=== PATIENT | male | born 1955 | race Hispanic/Latino ===

== ENCOUNTER 2021-02-21 09:52 | Emergency (ER) | payer MEDICARE ==
[2021-02-21] MEDS ORDERED: hydrALAZINE 25 MG TAB PO ONE (10:07)
--- NOTE | 2021-02-21 10:32 | Emergency Department Report ---
ED Shortness of Breath HPI - General Chief Complaint: Dyspnea/Respdistress Stated Complaint: ELOINA Time Seen by Provider: 02/21/21 10:01 Source: patient Mode of arrival: Ambulatory Limitations: No Limitations - History of Present Illness Initial Comments: Patient is a 66-year-old male presents emergency with complaints of shortness of breath that worsened over the last couple days. He states he has had increasing shortness of breath over couple weeks. He has associated orthopnea, exertional shortness of breath, paroxysmal nocturnal dyspnea. Patient states he is also had a cough with yellow mucus production. He denies any chest pain, fever, vomiting, diarrhea, leg swelling, hemoptysis, pleuritic pain. He has a past medical history of nonischemic cardiomyopathy with ejection fraction of 25%,chronic kidney disease and hypertension. Patient states that he ran out of his medications that he was given during his last emergency room visit. He denies any allergies to medications. He is a former smoker. pt underwent cardiac catheterization nonobstructive coronaries, severe cardiomyopathy with EF of 25%. - Related Data Previous Rx's Medication Instructions Recorded Last Taken Type Aspirin [Aspirin BABY CHEW TAB] 81 mg PO QDAY #30 tab.chew 05/26/20 Unknown Rx Metoprolol [Lopressor TAB] 12.5 mg PO BID #60 tablet 08/07/20 Unknown Rx Furosemide [Lasix TAB] 20 mg PO QDAY #30 tablet 02/21/21 Unknown Rx lisinopriL [Zestril TAB] 5 mg PO QDAY #30 tablet 02/21/21 Unknown Rx Allergies Allergy/AdvReac Type Severity Reaction Status Date / Time No Known Allergies Allergy Unverified 08/04/20 22:41 ED Review of Systems ROS: Stated complaint: ELOINA Other details as noted in HPI Comment: All other systems reviewed and negative ED Past Medical Hx - Past Medical History Previous Medical History?: Yes Hx Hypertension: Yes Hx Arthritis: Yes Hx HIV: No - Surgical History Past Surgical History?: No - Social History Smoking Status: Former Smoker - Medications Home Medications: Home Medications Medication Instructions Recorded Confirmed Last Taken Type Aspirin [Aspirin BABY CHEW TAB] 81 mg PO QDAY #30 tab.chew 05/26/20 02/21/21 Unknown Rx Metoprolol [Lopressor TAB] 12.5 mg PO BID #60 tablet 08/07/20 02/21/21 Unknown Rx Furosemide [Lasix TAB] 20 mg PO QDAY #30 tablet 02/21/21 Unknown Rx lisinopriL [Zestril TAB] 5 mg PO QDAY #30 tablet 02/21/21 Unknown Rx ED Physical Exam - General Limitations: No Limitations General appearance: alert, in no apparent distress - Head Head exam: Present: atraumatic, normocephalic - Eye Eye exam: Present: normal appearance - ENT ENT exam: Present: mucous membranes moist - Respiratory Respiratory exam: Present: rales, decreased breath sounds. Absent: respiratory distress, wheezes, stridor, chest wall tenderness, accessory muscle use, prolonged expiratory - Cardiovascular Cardiovascular Exam: Present: regular rate, normal rhythm, normal heart sounds. Absent: systolic murmur, diastolic murmur, rubs, gallop - Extremities Exam Extremities exam: Absent: pedal edema, calf tenderness - Neurological Exam Neurological exam: Present: alert, oriented X3 - Psychiatric Psychiatric exam: Present: normal affect, normal mood - Skin Skin exam: Present: warm, dry ED Course Vital Signs 02/21/21 02/21/21 02/21/21 09:57 10:24 10:56 Temperature 97.7 F Pulse Rate 55 L Respiratory 18 22 31 H Rate Blood Pressure 185/110 O2 Sat by Pulse 95 97 Oximetry 02/21/21 02/21/21 02/21/21 11:00 11:16 11:30 Temperature Pulse Rate 79 66 75 Respiratory 34 H 22 26 H Rate Blood Pressure 178/115 176/105 183/145 O2 Sat by Pulse 94 95 95 Oximetry 02/21/21 02/21/21 02/21/21 11:46 12:00 12:16 Temperature Pulse Rate 84 81 68 Respiratory 27 H 21 22 Rate Blood Pressure 178/110 172/111 176/114 O2 Sat by Pulse 94 89 89 Oximetry 02/21/21 02/21/21 02/21/21 12:30 12:46 13:00 Temperature Pulse Rate 64 62 68 Respiratory 27 H 14 18 Rate Blood Pressure 160/115 163/109 166/118 O2 Sat by Pulse 87 91 91 Oximetry 02/21/21 02/21/21 02/21/21 13:16 13:30 13:46 Temperature Pulse Rate 80 Respiratory 19 Rate Blood Pressure 175/125 171/104 163/109 O2 Sat by Pulse 95 92 94 Oximetry 02/21/21 02/21/21 02/21/21 14:00 14:16 14:23 Temperature Pulse Rate Respiratory Rate Blood Pressure 171/104 159/103 O2 Sat by Pulse 97 83 L 97 Oximetry ED Medical Decision Making - Lab Data Result diagrams: 02/21/21 10:50 02/21/21 10:50 Lab Results 02/21/21 02/21/21 02/21/21 Range/Units 10:50 10:50 10:50 WBC 8.4 (4.5-11.0) K/mm3 RBC 4.75 (3.65-5.03) M/mm3 Hgb 14.9 (11.8-15.2) gm/dl Hct 44.2 (35.5-45.6) % MCV 93 (84-94) fl MCH 31 (28-32) pg MCHC 34 (32-34) % RDW 14.2 (13.2-15.2) % Plt Count 233 (140-440) K/mm3 Add Manual Diff Complete Total Counted 100 Seg Neuts % (Manual) 84.0 H (40.0-70.0) % Band Neutrophils % 2.0 % Lymphocytes % (Manual) 13.0 L (13.4-35.0) % Monocytes % (Manual) 1.0 (0.0-7.3) % Nucleated RBC % Not Reportable Seg Neutrophils # Man 7.1 (1.8-7.7) K/mm3 Band Neutrophils # 0.2 K/mm3 Lymphocytes # (Manual) 1.1 L (1.2-5.4) K/mm3 Abs React Lymphs (Man) 0.0 K/mm3 Monocytes # (Manual) 0.1 (0.0-0.8) K/mm3 Eosinophils # (Manual) 0.0 (0.0-0.4) K/mm3 Basophils # (Manual) 0.0 (0.0-0.1) K/mm3 Metamyelocytes # 0.0 K/mm3 Myelocytes # 0.0 K/mm3 Promyelocytes # 0.0 K/mm3 Blast Cells # 0.0 K/mm3 WBC Morphology Not Reportable TNR Hypersegmented Neuts Not Reportable Hyposegmented Neuts Not Reportable Hypogranular Neuts Not Reportable Smudge Cells Not Reportable Toxic Granulation Not Reportable Toxic Vacuolation Not Reportable Dohle Bodies Not Reportable Pelger-Huet Anomaly Not Reportable Gabriela Rods Not Reportable Platelet Estimate Not Reportable Clumped Platelets Not Reportable Plt Clumps, EDTA Not Reportable Large Platelets Not Reportable Giant Platelets Not Reportable Platelet Satelliting Not Reportable Plt Morphology Comment Not Reportable RBC Morphology Not Reportable Dimorphic RBCs Not Reportable Polychromasia Not Reportable Hypochromasia Not Reportable Poikilocytosis Not Reportable Anisocytosis Few Microcytosis Not Reportable Macrocytosis Not Reportable Spherocytes Not Reportable Pappenheimer Bodies Not Reportable Sickle Cells Not Reportable Target Cells Not Reportable Tear Drop Cells Not Reportable Ovalocytes Not Reportable Helmet Cells Not Reportable Jordan-Landen Bodies Not Reportable [place] Rings Not Reportable [place] Cells Not Reportable Bite Cells Not Reportable Crenated Cell Not Reportable Elliptocytes Not Reportable Acanthocytes (Spur) Not Reportable Rouleaux Not Reportable Hemoglobin C Crystals Not Reportable Schistocytes Not Reportable Malaria parasites Not Reportable Abisai Bodies Not Reportable Hem Pathologist Commnt No Sodium 139 (137-145) mmol/L Potassium 5.1 H (3.6-5.0) mmol/L Chloride 103.3 (98-107) mmol/L Carbon Dioxide 22 (22-30) mmol/L Anion Gap 19 mmol/L BUN 22 H (9-20) mg/dL Creatinine 1.4 H (0.8-1.3) mg/dL Estimated GFR 51 ml/min BUN/Creatinine Ratio 16 % Glucose 106 H (75-100) mg/dL Calcium 9.0 (8.4-10.2) mg/dL Total Bilirubin 0.40 (0.1-1.2) mg/dL AST 55 H (5-40) units/L ALT 43 (7-56) units/L Alkaline Phosphatase 64 (35-129) units/L Troponin T 0.022 (0.00-0.029) ng/mL NT-Pro-B Natriuret Pep 86707 H (0-900) pg/mL Total Protein 7.3 (6.3-8.2) g/dL Albumin 3.9 (3.9-5) g/dL Albumin/Globulin Ratio 1.1 % Vital Signs 02/21/21 02/21/21 02/21/21 09:57 10:24 10:56 Temperature 97.7 F Pulse Rate 55 L Respiratory 18 22 31 H Rate Blood Pressure 185/110 O2 Sat by Pulse 95 97 Oximetry 02/21/21 02/21/21 02/21/21 11:00 11:16 11:30 Temperature Pulse Rate 79 66 75 Respiratory 34 H 22 26 H Rate Blood Pressure 178/115 176/105 183/145 O2 Sat by Pulse 94 95 95 Oximetry 02/21/21 02/21/21 02/21/21 11:46 12:00 12:16 Temperature Pulse Rate 84 81 68 Respiratory 27 H 21 22 Rate Blood Pressure 178/110 172/111 176/114 O2 Sat by Pulse 94 89 89 Oximetry 02/21/21 02/21/21 02/21/21 12:30 12:46 13:00 Temperature Pulse Rate 64 62 68 Respiratory 27 H 14 18 Rate Blood Pressure 160/115 163/109 166/118 O2 Sat by Pulse 87 91 91 Oximetry 02/21/21 02/21/21 02/21/21 13:16 13:30 13:46 Temperature Pulse Rate 80 Respiratory 19 Rate Blood Pressure 175/125 171/104 163/109 O2 Sat by Pulse 95 92 94 Oximetry 02/21/21 02/21/21 02/21/21 14:00 14:16 14:23 Temperature Pulse Rate Respiratory Rate Blood Pressure 171/104 159/103 O2 Sat by Pulse 97 83 L 97 Oximetry - EKG Data EKG shows normal: sinus rhythm Rate: normal - EKG Data 02/21/21 10:33 RAD PAC prolonged ND interval 240 LVH no STEMI no significant change from 08/07/2020 - Radiology Data Radiology results: report reviewed Ordering Physician: YESICA SAMUEL Date of Service: 02/21/21 Procedure(s): XR chest routine 2V Accession Number(s): [id number] cc: YESICA SAMUEL Fluoro Time In Minutes: CHEST PA AND LATERAL VIEWS INDICATION: sob, rales on exam. COMPARISON: 08/05/2020 FINDINGS: Support devices: None. Heart: Stable. Lungs/Pleura: There are mild diffuse interstitial opacities of uncertain chronicity, similar to the remote prior. No consolidation or effusion. No pneumothorax. IMPRESSION: 1. Persistent borderline cardiomegaly. Mild increased interstitial markings are similar to the prior and could be chronic or due to recurrent mild interstitial edema. Signer Name: John Brock MD Signed: 02/21/2021 10:26 AM Workstation Name: [id number] Transcribed By: SINDY Dictated By: John Brock MD Electronically Authenticated By: John Brock MD Signed Date/Time: 02/21/21 1026 DD/ 1025 TD/TT: - Medical Decision Making Patient is a 66-year-old male presents emergency with complaints of shortness of breath that worsened over the last couple days. He states he has had increasing shortness of breath over couple weeks. He has associated orthopnea, exertional shortness of breath, paroxysmal nocturnal dyspnea. Patient states he is also had a cough with yellow mucus production. He denies any chest pain, fever, vomiting, diarrhea, leg swelling, hemoptysis, pleuritic pain. He has a past medical history of nonischemic cardiomyopathy with ejection fraction of 25%,chronic kidney disease and hypertension. Patient states that he ran out of his medications that he was given during his last emergency room visit. He denies any allergies to medications. He is a former smoker. pt underwent cardiac catheterization nonobstructive coronaries, severe cardiomyopathy with EF of 25%. Initial vitals with elevated blood pressure, otherwise stable. On exam patient has mild rales, no lower extremity edema. Labs with elevated BNP which is improved from previous, chronic stable CKD, troponin is negative. EKG stable from previous, no STEMI. Chest x-ray: 1. Persistent borderline cardiomegaly. Mild increased interstitial markings are similar to the prior and could be chronic or due to recurrent mild interstitial edema. Patient given hydralazine and IV Lasix and blood pressure significantly improved. She was able to diurese 3 L while in the emergency department. Patient on reexamination is feeling much better and his shortness of breath has improved. Patient's vitals remained stable. He has not been hypoxic, occasionally has pulse ox monitor falls off his finger, I personally monitored patient his oxygen saturation is between 95 to 98% on room air. Patient will be given prescription for medication and given primary care, nephrology, cardiology follow-up. Discussed the importance of outpatient follow-up. Discussed case with Dr. Urena, ER attending who is agreeable with plan. Advised patient Please take medication as prescribed. Follow-up with a dispatch lead. Follow-up with a probation worker. Follow-up with your primary care doctor. Return to emergency room for any new or worsening symptoms. Critical care attestation.: If time is entered above; I have spent that time in minutes in the direct care of this critically ill patient, excluding procedure time. ED Disposition Clinical Impression: SOB (shortness of breath) CHF exacerbation Qualifiers: Heart failure type: unspecified Qualified Code(s): I50.9 - Heart failure, unspecified CKD (chronic kidney disease) Qualifiers: Chronic kidney disease stage: unspecified stage Qualified Code(s): N18.9 - Chronic kidney disease, unspecified Disposition: 01 HOME / SELF CARE / HOMELESS Is pt being admited?: No Does the pt Need Aspirin: No Condition: Stable Instructions: Heart Failure, Diagnosis, Heart Failure Eating Plan Additional Instructions: Please take medication as prescribed. Follow-up with a dispatch lead. Follow-up with a probation worker. Follow-up with your primary care doctor. Return to emergency room for any new or worsening symptoms. Prescriptions: Furosemide [Lasix TAB] 20 mg PO QDAY #30 tablet lisinopriL [Zestril TAB] 5 mg PO QDAY #30 tablet Referrals: PRIMARY MD BRE [Primary Care Provider] - 3-5 Days SHARMILA CORMIER MD [Staff Physician] - 3-5 Days BINA OCHOA MD [Staff Physician] - 3-5 Days RENETTA BROOKS MD [Staff Physician] - 3-5 Days Time of Disposition: 14:14 Print Language: UKRAINIAN
[2021-02-21 11:13] LABS: Hematocrit 44.2 % (35.5-45.6); Hemoglobin 14.9 gm/dl (11.8-15.2); Mean Corpuscular HGB Conc 34 % (32-34); Mean Corpuscular Volume 93 fl (84-94); Platelet Count 233 K/mm3 (140-440); Red Blood Count 4.75 M/mm3 (3.65-5.03); Red Cell Distribution Width 14.2 % (13.2-15.2)
[2021-02-21 11:36] LABS: Albumin 3.9 g/dL (3.9-5)
[2021-02-21] MEDS ORDERED: FUROSEMIDE 40 MG/4 ML INJ IV ONE (11:39)
[2021-02-21 11:45] LABS: Total Cells Counted 100
[2021-02-21 11:46] LABS: Anisocytosis Few; Band Neutrophils # (Manual) 0.2 K/mm3
[2021-02-21] MEDS ORDERED: hydrALAZINE 20 MG/1 ML INJ IV ONE (12:37)
[2021-02-21 14:23] VITALS: BP 159/103
--- NOTE | 2021-02-23 10:55 | Electrocardiograph Report ---
[facility] Test Date: 2021-02-21 Test Time: 10:11:27 Pat Name: IRASEMA HERNANDEZ Department: Room: Gender: [place] [employer]: RUFINA : 1955 Requested By: SURESH ARCEO Order Number: [id number] Reading MD: Navin Astorga Measurements Intervals [place] Rate: 73 P: 66 MS: 240 QRS: 115 QRSD: 121 T: 95 QT: 448 QTc: 488 Interpretive Statements Sinus rhythm Atrial premature complexes Prolonged MS interval Consider left ventricular hypertrophy Abnrm T, consider ischemia, anterolateral lds Compared to ECG 08/06/2020 06:57:11 Atrial premature complex(es) now present Possible ischemia now present Intraventricular conduction delay no longer present Early repolarization no longer present Electronically Signed On 02-23-2021 10:55:43 EDT by Navin Astorga
== END 2021-02-21 14:25 | disposition home or self-care (01) ==
LOC: ED 09:52
DX: I13.0 Hypertensive heart and chronic kidney disease with heart failure and stage 1 through stage 4 chronic kidney disease, or unspecified chronic kidney disease (principal); I50.9 Heart failure, unspecified; N18.9 Chronic kidney disease, unspecified; R06.02 Shortness of breath; M19.90 Unspecified osteoarthritis, unspecified site; Z87.891 Personal history of nicotine dependence
CPT/HCPCS: 36415; 71046; 80053; 83880; 84484; 85007; 85025; 93005; 96374; 99284; J1940

== ENCOUNTER 2021-04-13 07:18 | Emergency (ER) | payer MEDICARE ==
[2021-04-13 07:28] VITALS: BP 165/112
--- NOTE | 2021-04-13 08:17 | Emergency Department Report ---
ED General Adult HPI - General Chief complaint: Dyspnea/Respdistress Stated complaint: DIFFICULTY BREATHING Time Seen by Provider: 04/13/21 07:42 Source: patient Mode of arrival: Ambulatory Limitations: No Limitations - History of Present Illness Severity scale (0 -10): 0 - Related Data Previous Rx's Medication Instructions Recorded Last Taken Type Metoprolol [Lopressor TAB] 12.5 mg PO BID #60 tablet 08/07/20 Unknown Rx Aspirin [Aspirin BABY CHEW TAB] 81 mg PO QDAY #30 tab.chew 04/13/21 Unknown Rx Furosemide [Lasix TAB] 20 mg PO QDAY #30 tablet 04/13/21 Unknown Rx lisinopriL [Zestril TAB] 5 mg PO QDAY #30 tablet 04/13/21 Unknown Rx Allergies Allergy/AdvReac Type Severity Reaction Status Date / Time No Known Allergies Allergy Verified 04/13/21 07:27 ED Review of Systems ROS: Stated complaint: DIFFICULTY BREATHING Other details as noted in HPI Comment: All other systems reviewed and negative ED Past Medical Hx - Past Medical History Hx Hypertension: Yes Hx Arthritis: Yes Hx HIV: No - Social History Smoking Status: Former Smoker - Medications Home Medications: Home Medications Medication Instructions Recorded Confirmed Last Taken Type Metoprolol [Lopressor TAB] 12.5 mg PO BID #60 tablet 08/07/20 02/21/21 Unknown Rx Aspirin [Aspirin BABY CHEW TAB] 81 mg PO QDAY #30 tab.chew 04/13/21 Unknown Rx Furosemide [Lasix TAB] 20 mg PO QDAY #30 tablet 04/13/21 Unknown Rx lisinopriL [Zestril TAB] 5 mg PO QDAY #30 tablet 04/13/21 Unknown Rx ED Physical Exam - General Limitations: No Limitations General appearance: alert, in no apparent distress - Head Head exam: Present: atraumatic, normocephalic - Eye Eye exam: Present: normal appearance - ENT ENT exam: Present: mucous membranes moist - Neck Neck exam: Present: normal inspection - Respiratory Respiratory exam: Present: normal lung sounds bilaterally. Absent: respiratory distress - Cardiovascular Cardiovascular Exam: Present: regular rate, normal rhythm. Absent: systolic murmur, diastolic murmur, rubs, gallop - GI/Abdominal GI/Abdominal exam: Present: soft, normal bowel sounds - Rectal Rectal exam: Present: deferred - Extremities Exam Extremities exam: Present: normal inspection, pedal edema - Back Exam Back exam: Present: normal inspection - Neurological Exam Neurological exam: Present: alert, oriented X3, normal gait - Psychiatric Psychiatric exam: Present: normal affect, normal mood - Skin Skin exam: Present: warm, dry, intact, normal color. Absent: rash ED Course Vital Signs 04/13/21 07:27 Temperature 97.4 F L Pulse Rate 83 Respiratory 24 Rate Blood Pressure 165/112 [Right] O2 Sat by Pulse 97 Oximetry Critical care attestation.: If time is entered above; I have spent that time in minutes in the direct care of this critically ill patient, excluding procedure time. ED Disposition Clinical Impression: Noncompliance with medication regimen, Hypertension, Homelessness, CHF (congestive heart failure) Disposition: HOME / SELF CARE / HOMELESS Is pt being admited?: No Does the pt Need Aspirin: No Condition: Stable Instructions: Hypertension (ED), Preventing Hypertension, Heart Failure, Self Care, [id number], Heart Failure, Diagnosis, [id number] Additional Instructions: Please take medications as prescribed. Follow up with a primary care provider. Prescriptions: Aspirin [Aspirin BABY CHEW TAB] 81 mg PO QDAY #30 tab.chew Furosemide [Lasix TAB] 20 mg PO QDAY #30 tablet lisinopriL [Zestril TAB] 5 mg PO QDAY #30 tablet Referrals: JORGE BUTCHER MD [Staff Physician] - 3-5 Days SHARMILA CORMIER MD [Staff Physician] - 3-5 Days Time of Disposition: 08:17
== END 2021-04-13 08:41 | disposition home or self-care (01) ==
LOC: ED 07:18
DX: I11.0 Hypertensive heart disease with heart failure (principal); I50.9 Heart failure, unspecified; M19.90 Unspecified osteoarthritis, unspecified site; Z59.00 Homelessness unspecified; Z87.891 Personal history of nicotine dependence; Z79.82 Long term (current) use of aspirin; Z79.899 Other long term (current) drug therapy
CPT/HCPCS: 99281